=== PATIENT | male | born 1960 | race Two or more races ===

== ENCOUNTER 2023-12-28 03:02 | Emergency (ER) | payer OTHER ==
[~2023-12-28] VITALS: Ht 170.2 cm; Wt 68.0 kg
[2023-12-28] MEDS ORDERED: KETOROLAC TROMETHAMINE 30 MG VIAL IV STA (05:33)
[2023-12-28] MEDS ORDERED: RINGERS SOLUTION,LACTATED 500 ML IV STA (05:33)
[2023-12-28] MEDS ORDERED: HYOSCYAMINE SULFATE 0.125 MG TAB.SUBL SL ONE (05:45)
[2023-12-28 06:20] LABS: HEMATOCRIT 47.6 % (39.0-48.0); HEMOGLOBIN 16.1 g/dL (13-16.00); MEAN CELL VOLUME 85.6 fL (80.0-100.00); MEAN CORPUSCULAR HGB CONC 33.9 g/dl (32.0-36.0); PLATELET COUNT 251 K/uL (150-450); RED BLOOD COUNT 5.56 M/uL (4.00-6.00); RED CELL DISTRIBUTION WIDTH 12.6 % (11.5-14.5)
[2023-12-28 06:42] LABS: CALCIUM 9.8 mg/dL (8.5-10.1); CREATININE SERUM 1.58 mg/dL (0.70-1.30); GFR 44.37; POTASSIUM 4.59 mEq/L (3.5-5.1)
[2023-12-28 06:55] LABS: URINE APPEARANCE Cloudy; URINE BILIRRUBIN Negative (NEGATIVE); URINE BLOOD Large; URINE COLOR Orange; URINE GLUCOSE Negative (NEGATIVE); URINE KETONE 15 (NEGATIVE); URINE LEUKOCYTE Small; URINE NITRATE Negative; URINE UROBILINOGEN 0.2 E.U./dl
[2023-12-28 07:01] LABS: URINE BACTERIA 125.9 uL (0.0-1933); URINE EPITHELIAL CELLS 3.5 uL (0.0-38.8); URINE WBC 22.8 uL (0.0-23.2)
[2023-12-28 07:12] LABS: URINE CAST 0.15 uL (0.0-1.40); URINE PROTEIN 100 (NEGATIVE); URINE RBC > 10558.9 uL (0.0-20.8)
== END 2023-12-28 10:44 | disposition left against medical advice (07) ==
LOC: ER 03:04
DX: R10.9 Unspecified abdominal pain (principal)